=== PATIENT | male | born 1970 | race Caucasian/White ===

== ENCOUNTER → 2018-04-01 | Outpatient (CLI) | payer OTHER | LOC: BMCIMAGING 16:27 | PROVIDERS: ATTEND Family Medicine | DX: J98.4 Other disorders of lung (principal) ==

== ENCOUNTER → 2018-09-24 | Outpatient (CLI) | payer OTHER | LOC: BMCIMAGING 16:03 | PROVIDERS: ATTEND Family Medicine | DX: M51.34 Other intervertebral disc degeneration, thoracic region (principal); M62.830 Muscle spasm of back ==